=== PATIENT | male | born 1980 | race African-American/Black ===

== ENCOUNTER 2016-08-21 08:16 | Emergency (ER) | payer OTHER ==
[2016-08-21] MEDS ORDERED: SULFAMETH/TRIMETH DS 800/160 MG TABLET PO STA (08:38)
[2016-08-21] MEDS ORDERED: IBUPROFEN 600 MG TABLET PO STA (08:38)
[2016-08-21] MEDS ORDERED: CEPHALEXIN 250 MG CAPSULE PO STA (08:38)
[2016-08-21] MEDS ORDERED: SULFAMETH/TRIMETH DS 800/160 MG TABLET PO ONE (08:43)
[2016-08-21] MEDS ORDERED: IBUPROFEN 600 MG TABLET PO ONE (08:43)
[2016-08-21] MEDS ORDERED: CEPHALEXIN 250 MG CAPSULE PO ONE (08:43)
== END 2016-08-21 08:50 | disposition home or self-care (01) ==
DX: L03.114 Cellulitis of left upper limb (principal)
CPT/HCPCS: 99283; A9270